=== PATIENT | male | born 1995 | race Asian ===

== ENCOUNTER 2024-01-13 11:53 | Outpatient (CLI) | payer OTHER ==
--- NOTE | 2024-01-13 12:44 | CT Report ---
PROCEDURE: Abdomen/Pelvis WO INDICATIONS: CYSTITIS TECHNIQUE: A CT scan of the abdomen and pelvis was performed without the use of intravenous contrast. Images we re recorded and evaluated at appropriate window settings. Reformats: coronal and sagittal. For radiat ion dose reduction, the following was used: automated exposure control, adjustment of mA and/or kV ac cording to patient size. COMPARISON: None. FINDINGS: Image quality: Diagnostic. Lower chest: Unremarkable. Liver: No contour-deforming mass. Gallbladder: No radiopaque stones or wall thickening. Biliary tree: No intrahepatic or extrahepatic dilation, accounting for age. Spleen: No splenomegaly. Pancreas: No pancreatic ductal dilation. Adrenals: No adrenal nodule. Kidneys and ureters: No hydronephrosis. No contour-deforming mass. Single, punctate, nonobstructing r ight-sided nephrolithiasis. Stomach, bowel and peritoneum: No gastric or small bowel dilation. No abnormal wall thickening. No pa thologic free fluid. Submucosal fat deposition in the ascending colon and transverse colon. Normal ap pendix. Lymph nodes: No central or retroperitoneal adenopathy. Vessels: No infrarenal aortic aneurysm. Reproductive organs: Unremarkable. Bladder: Bladder wall thickness is normal, accounting for underdistention. No calcified bladder stone s. Pelvic lymph nodes: No adenopathy by size criteria. Bones: No aggressive osseous abnormality. Other: No significant ventral or inguinal hernia. IMPRESSION: No hydronephrosis or obstructing renal stone. Single, punctate, nonobstructing right-sided nephrolith iasis. Submucosal fat deposition in the ascending colon and transverse colon, which may indicate chronic inf lammatory process such as Crohn's disease. No evidence of active inflammatory bowel disease at this t kristofer. Reviewed by: Wilson Cobb MD on 01/13/2024 12:42 PM PDT Approved by: Wilson Cobb MD on 01/13/2024 12:42 PM PDT Station ID: [id number]
== END 2024-01-13 11:54 | disposition home or self-care (01) ==
LOC: DI 11:53
PROVIDERS: ATTEND Physician Assistant Medical
DX: N30.01 Acute cystitis with hematuria (principal); N20.0 Calculus of kidney; E65 Localized adiposity